=== PATIENT | male | born 1995 | race Caucasian/White ===

== ENCOUNTER 2019-10-31 19:14 | Inpatient (IN) | payer BC, SELFPAY ==
[2019-10-31] VITALS (9 sets, daily range): BP systolic 132–191; BP diastolic 76–104; PULSE 81–132; RESP 17–28; TEMP 36.6–37.3; O2SAT 88–98; BMI 32.5; BMI 31.5; BMI 31.6
[2019-10-31] MEDS: Ipratropium/Albuterol Sulfate 3 ML AMPUL.NEB INHALATION (19:18)
[2019-10-31] MEDS: Albuterol 2.5 MG/3 ML VIAL.NEB. INHALATION ×3 (19:30→20:10)
[2019-10-31] MEDS: MethylPREDNISolone 125 MG/2 ML Vial IV (19:32)
[2019-10-31 19:45] LABS: Absolute Lymphocyte Count 1.74 X10^3/uL (0.83-4.51); Absolute Neutrophil Count 11.2 X10^3/uL (2.0-7.7); Basophil# 0.08 X10^3/uL; Basophil% 0.5 % (0-1); Eosinophil# 1.81 X10^3/uL; Hematocrit 45.9 % (40-54); Hemoglobin 15.3 g/dL (13.0-16.5); Lymphocyte # 1.74 X10^3/ul (4.0); Lymphocyte % 10.6 % (19-41); Mean Corp Hgb Conc 33.3 g/dL (32-36); Mean Corpuscular Hgb 29.4 pg (27.0-32.0); Mean Corpuscular Volume 88.3 fL (80-94); Mean Platelet Vol. 10.1 fl (6.2-12.0); Monocyte# 1.52 X10^3/uL; Monocyte% 9.2 % (0-10); NRBC Flagged by Analyzer 0 % (0-5); Neutrophil # 11.23 X10^3/uL (2.7-7.7); Neutrophil % 68.1 % (47-70); POSITIVE DIFFERENTIAL YES; Platelet Count 235 K/mm3 (150-450); RBC Distribution Width CV 12.4 % (11.6-14.6); White Blood Count 16.5 K/mm3 (4.4-11.0)
[2019-10-31 19:46] LABS: Differential Indicated SCAN CRITERIA MET
[2019-10-31 19:57] LABS: Anion Gap 7 (5-15); BUN 11 mg/dL (7-18); Calcium,Total 8.8 mg/dL (8.5-10.1); Chloride 105 mmol/L (98-107); EST Glomerular Filtration Rate 88 mL/min (>60); Est Glom Filt Rate - Afr Amer 106 mL/min (>60); Estimated Creatinine Clearance 94.25 ml/min; Glucose 117 mg/dL (74-106); Potassium 3.7 mmol/L (3.5-5.1); Sodium Level 139 mmol/L (136-145)
[2019-10-31 20:09] LABS: Differential Comment SCANNED
--- NOTE | 2019-10-31 20:15 | ED.DCSUM_ITS ---
- ER Visit Summary Date of Service: 10/31/19 Chief Complaint: [Shortness of breath] History of Present Illness: The patient is a 24 M [presents to the emergency department complaint of shortness of breath that became more severe about an hour ago. Patient has history of asthma. Patient has been using his inhaler but not get much relief. Patient states that he was diagnosed with asthmatic bronchitis about 3 weeks ago and was treated with Zithromax and prednisone. Patient notes he did get much better with that treatment. He denies any fevers. He does have a cough that is productive at times of some green sputum. Patient denies recent travel or surgery. He denies any exposures to patients with novel coronavirus. He denies any chest pain.] Physical Examination: [HEENT-PERRLA, EOMI. Cranial nerves II through XII grossly intact. TMs clear. Mucous membranes moist. No adenopathy. Cardiovascular-regular rate and rhythm without murmur or ectopy Lungs-diminished bilaterally with expiratory wheezes. Patient is tachypneic. Patient has conversational dyspnea. Abdomen-normoactive bowel sounds, soft, nontender, no rebound or rigidity, no peritoneal signs. Extremities-intact ?4, normal range of motion, normal pulses, atraumatic] Test Results: [CBC with differential obtained showed a white count of 16.5, hemoglobin 15, hematocrit 46, placed 235. Chemistries unremarkable.] Chest x- ray was normal Emergency Department Course and Treatment: [Patient was given DuoNeb aerosol followed by 2 more aerosols. Patient was given Solu-Medrol 125 mg IV. Patient was given 2 g of IV magnesium as he continued to wheeze. Patient was started on Levaquin 750 mg IV. Respiratory panel ordered.] Treatment Plan: [Admit] patient's had symptoms for 3 weeks and started with cough and sputum production. Cannot rule out infection with novel coronavirus based on not having test available from ER. It is concerning that patient continues to feel dyspneic and is hypoxic and he is never required hospitalization for his asthma. Disposition: [Admit] Impression: [Asthmatic bronchitis Hypoxemia] This note was generated with [employer] dictation software. It may contain incorrect words, spelling, and punctuation that were not noted in review of the chart prior to signing ED Disposition - Plan for ED Patient: Referrals: NOT,DEFINED [NON-STAFF] -
--- NOTE | 2019-10-31 20:30 | RAD_ITS ---
STUDY: X-RAY CHEST REASON FOR EXAM: Male, 24 years old. shortness of breath, Hx asthma TECHNIQUE: Single AP portable view of the chest. COMPARISON: None. FINDINGS: compliance monitor leads are present. The lungs are clear and expanded. There is no demonstrated pleural abnormality. Normal size heart. Normal mediastinum and cassidy. Normal visualized pulmonary arteries. Normal visualized aortic arch and descending thoracic aorta. Normal visualized thoracic spine. Normal visualized ribs, clavicles, and shoulders. There is no demonstrated abnormality of the visualized soft tissue structures of the upper abdomen. RAD/Chest 1 View (Portable) IMPRESSION: Normal x-ray examination of the chest. Electronically Signed: Herb Sainz MD at 21:06 EDT , Service support ,
--- NOTE | 2019-10-31 20:51 | CPS ---
x3 Albuterol given to pt. in ED as well
--- NOTE | 2019-10-31 21:21 | HP.PCM_ITS ---
Problem List (1) Asthma exacerbation Status: Acute Qualifiers: Asthma severity: unspecified severity (2) Acute respiratory failure with hypoxia Status: Acute (3) GERD (gastroesophageal reflux disease) Status: Chronic Qualifiers: Esophagitis presence: esophagitis presence not specified Qualified Code(s): K21.9 - Gastro-esophageal reflux disease without esophagitis (4) Obesity (BMI 30.0-34.9) Status: Chronic History of Present Illness Date of Admission: 10/31/19 Chief Complaint: Dyspnea, cough, wheezing The patient is a 24 y/o M w/ PMHx: Asthma, Obesity, GERD who presents to the [facility] ED on 10/31/19 with history of ongoing difficulties with dyspnea, wheezing, intermittently productive cough of green sputum occasionally x 1.5 weeks, noted to have been treated for bronchitis with asthma exacerbation with azithromycin and prednisone therapy; however, he has continued to worsen prompting ED return with a specifically more severe attacks starting approximately 1 hour prior to ED arrival. Patient has been off steroids x 2 weeks. Patient notes subjective fevers and ongoing significant diaphoresis as well as some chest discomfort and back discomfort. He denies any nausea, emesis, diarrhea. He denies any sore throat. He denies headaches. He denies any alteration to sense of smell or taste. He denies any recent ill contacts. He does state that he is never had an exacerbation like this in his entire life. He notes that he seemed to get better for couple days and then would again become short of breath and wheezing despite aerosol usage. Work-up in the ED included T 98.2, heart rate 119, BP 191/104, respiratory rate 20, initially 88% on room air, CBC with WBC 16.5, hemoglobin 15.3, platelet 235 with mild left shift but noted also mild lymphopenia, unremarkable BMP aside glucose 117, chest x-ray with no acute cardiopulmonary findings. In the ED patient administered Solu-Medrol 125 mg IV x1, magnesium sulfate 2 g, DuoNeb and albuterol therapies as well as Levaquin 750 mg IV x1, Bld Cx x 2 pending per ED. Past Medical History Past Medical History (Chronic Problems): Chronic Problems GERD (gastroesophageal reflux disease) (Chronic) Obesity (BMI 30.0-34.9) (Chronic) Allergies No Known Allergies Allergy (Verified 10/31/19 19:18) Home Medications: Ambulatory Orders Medication Instructions Recorded Albuterol Inhaler [Ventolin Hfa 1 puff INHALATION Q4H PRN PRN 10/31/19 (SP)] Surgical History: - - [place] teeth extraction. Psychiatric History: No pertinent psych hx Lives: Spouse/ Significant Other Smoking Status: Never smoker Tobacco Use: Chew Alcohol: Occasional Drugs: None - *Family History Maternal History Items: Hypertension Paternal History Items: Cancer - Father with history of colon cancer, in his 50s. Review of Systems Constitutional: Reports: Anorexia, Chills, Fever, Malaise, Weakness, Fatigue. Denies: Weight Change HEENT: Denies: Head Aches, Nasal Congestion, Post Nasal Drip, Sinus Congestion, Sinus Drainage, Sore Throat Cardiovascular: Reports: Chest Tightness. Denies: Chest Pain, Light Headedness, Palpitations, Syncope Respiratory: Reports: Cough, Shortness of Breath, Shortness of breath at rest, Shortness of breath upon exertion, Sputum production, Wheezing Gastrointestinal: Denies: Abdominal Pain, Nausea, Vomiting Genitourinary: Denies: Dysuria Musculoskeletal: Reports: Back Pain. Denies: Joint Pain, Joint Tenderness Skin: Denies: Rash, Wounds Neurological: Denies: Numbness, Tingling, Focal weakness Psychiatric: Denies: Anxiety, Depression, Homicidal Ideations, Suicidal Ideations Hematologic/ Lymphatic: Denies: Easy Bruising, Easy Bleeding VTE Information - Inpt Only VTE Present on Admission: No VTE Mechan Device Prophylaxis: None VTE Pharm Prophylaxis ordered?: No Reason prophylaxis not ordered:: Treatment Not Indicated Patient Problems: Active and Suspected Problems Asthma exacerbation (Acute) Acute respiratory failure with hypoxia (Acute) Subjective: Seated upright in the ED bed, fatigued appearance, notes some improvement since initial ED presentation but remains extremely diaphoretic. Objective: Physical Examination: General: awake, alert, oriented x 3 and cooperative, seated upright in the ED bed, fatigued appearance, still mildly tachycardic and diaphoretic but notes feeling improved and less dyspneic than initial presentation. Skin: normal color, turgor, no icterus, cyanosis. HEENT: AT/NC, EOMI, PERRLA, moderately dry MM, no carotid bruits or JVD noted. Lungs: Diminished breath sounds, greater upper lung mcgill, expiratory wheezing lower lung mcgill, improved since initial ED presentation, no current accessory muscle usage or increased respiratory rate however upon initial evaluation had been significantly dyspneic with hypoxia and evidence of distress. Heart: Tachycardic with regular rhythm; no gallop, rub audible. Abdomen: soft, obese, NTTP, ND, normal BS, no HSM. Extremities: no cyanosis, clubbing, or edema. Neurological: patient awake, alert, oriented x 3; cognitive function intact; pupils equally reactive to light and accomodation; cranial nerves II-XII grossly normal, moving all 4 extremities, no focal deficits, strength severely global decrease secondary to acute presentation. Psychiatric: affect appears fatigued, ill-appearing, no acute evidence of depressive or anxiety feelings. - Physical Exam Vitals/I&O's: Vital Signs Temp Pulse Resp BP Pulse Ox 98 F 130 H 19 H 145/85 H 97 10/31/19 20:14 10/31/19 20:14 10/31/19 20:14 10/31/19 20:14 10/31/19 20:14 Oxygen Flow Rate (L/min) 2 Oxygen Delivery Method Nasal Cannula Weight: 201 lb 4.513 oz Body Mass Index (BMI) 32.5 Laboratory Results 10/31/19 19:30: WBC 16.5 H, RBC 5.20, Hgb 15.3, Hct 45.9, MCV 88.3, MCH 29.4, MCHC 33.3, RDW Std Deviation 40.0, RDW Coeff of Josie 12.4, Plt Count 235, MPV 10.1, Immature Gran % (Auto) 0.600, Neut % (Auto) 68.1, Lymph % (Auto) 10.6 L, [place] % (Auto) 9.2, Eos % (Auto) 11.0 H, Baso % (Auto) 0.5, Absolute Neuts (auto) 11.2 H, Absolute Lymphs (auto) 1.74, Nucleated RBC % 0, Differential Comment SCANNED, Diff Path Review November foll 10/31/19 19:30: Sodium 139, Potassium 3.7, Chloride 105, Carbon Dioxide 27.0, Anion Gap 7, BUN 11, Creatinine 1.10, Estim Creat Clear Calc 94.25, Est GFR (MDRD) Af Amer 106, Est GFR (MDRD) Non-Af 88, BUN/Creatinine Ratio 10.0, Glucose 117 H, Calcium 8.8 Current Medications Magnesium Sulfate 2 gm/ Sodium (Chloride) 104 mls @ 52 mls/hr IV X1 ONE Stop: 10/31/19 22:59 Last Admin: 10/31/19 20:45 Dose: 52 mls/hr Documented by: Levofloxacin (Levaquin Iv) 750 mg in 150 mls @ 100 mls/hr IV X1 ONE Stop: 10/31/19 22:25 Assessment/Plan All Active Problems Asthma exacerbation (Acute) Acute respiratory failure with hypoxia (Acute) The patient is a 24 y/o M w/ PMHx: Asthma, Obesity, GERD who presents to the [facility] ED on 10/31/19 with history of ongoing difficulties with dyspnea, wheezing, intermittently productive cough of green sputum occasionally x 1.5 weeks, noted to have been treated for bronchitis with asthma exacerbation with azithromycin and prednisone therapy; however, he has continued to worsen prompting ED return with a specifically more severe attacks starting approximately 1 hour prior to ED arrival. 1. Acute on chronic asthma exacerbation w/ Acute Hypoxic Respiratory Failure, Lower Suspicion COVID: Will admit to PCU status on COVID unit to be cautious. Especially given patient has never presented like this prior he notes, maintain on oxygen with wean as tolerated to room air, continue ATC duonebs, PRN albuterol, IV methylprednisolone, HOB, IS parameters, maintain on IV Rocephin and Azithromycin with de-escalation once appropriate with pending sputum cultures, urinary antigens, requesting respiratory viral panel as well as COVID. Will continue supportive care including q 2 hour turning including prone given no prone bed availability and judicious hydration, closely monitor for worsening status for ARDS and multiorgan failure. If patient worsens with need for oxygen >6 L would plan intubation with ICU physician continued care. Bld cx x 2 obtained in the ED. 2. Obesity: Weight loss and lifestyle changes encouraged. 3. GERD: We will maintain on famotidine. 4. DVT prophylaxis: Low risk. Inpatient E&M: 42560 Init Hosp L3
[2019-10-31] MEDS: levoFLOXacin IV 750 MG/150 ML BAG 100 MG IV (21:35)
[2019-10-31 22:39] LABS: AST(SGOT) 24 U/L (15-37); Alanine Aminotransfer ALT/SGPT 40 U/L (16-61); Albumin, Serum 4.4 g/dL (3.2-5.0); Alkaline Phosphatase 87 U/L (45-117); Bilirubin, Direct 0.17 mg/dL (0.00-0.30); Ferritin 332 ng/mL (26-388); Globulin 3.1 g/dL (2.2-4.2); LDH 265 U/L (87-241); Protein, Total 7.5 g/dL (6.4-8.2)
[2019-10-31 22:55] LABS: Procalcitonin < 0.04 ng/mL (0.00-0.09)
[2019-10-31] MEDS: 0.9% Normal Saline 1,000 ML 100 ML IV (23:34)
[2019-11-01] VITALS (15 sets, daily range): BP systolic 122–154; BP diastolic 71–86; PULSE 93–120; RESP 16–22; TEMP 36.9–37.2; O2SAT 92–98
[2019-11-01] MEDS: 0.9% Normal Saline 1,000 ML 999 ML IV (04:43)
[2019-11-01] MEDS: Ipratropium/Albuterol Sulfate 3 ML AMPUL.NEB INHALATION ×3 (06:43→15:19)
[2019-11-01 06:47] LABS: Absolute Lymphocyte Count 0.65 X10^3/uL (0.83-4.51); Absolute Neutrophil Count 8.5 X10^3/uL (2.0-7.7); Basophil# 0.01 X10^3/uL; Basophil% 0.1 % (0-1); Eosinophil# 0.02 X10^3/uL; Eosinophils% 0.2 % (0-5); Hemoglobin 13.9 g/dL (13.0-16.5); Lymphocyte # 0.65 X10^3/ul (4.0); Lymphocyte % 6.9 % (19-41); Mean Corp Hgb Conc 33.9 g/dL (32-36); Mean Corpuscular Hgb 29.8 pg (27.0-32.0); Mean Corpuscular Volume 87.8 fL (80-94); Mean Platelet Vol. 10.3 fl (6.2-12.0); Monocyte% 2.1 % (0-10); NRBC Flagged by Analyzer 0 % (0-5); Neutrophil # 8.53 X10^3/uL (2.7-7.7); Neutrophil % 90.2 % (47-70); Platelet Count 202 K/mm3 (150-450); RBC Distribution Width CV 12.7 % (11.6-14.6); Red Blood Count 4.67 M/mm3 (4.6-6.2); White Blood Count 9.5 K/mm3 (4.4-11.0)
[2019-11-01 07:33] LABS: ALB/GLOB Ratio 1.1 RATIO (0.9-2.4); AST(SGOT) 17 U/L (15-37); Alanine Aminotransfer ALT/SGPT 33 U/L (16-61); Albumin, Serum 3.9 g/dL (3.2-5.0); Alkaline Phosphatase 67 U/L (45-117); Anion Gap 5 (5-15); BUN 10 mg/dL (7-18); BUN/Creat Ratio 11.6 RATIO (10-20); Calcium,Total 8.8 mg/dL (8.5-10.1); Chloride 107 mmol/L (98-107); Creatinine, Serum 0.86 mg/dL (0.70-1.30); EST Glomerular Filtration Rate 116 mL/min (>60); Est Glom Filt Rate - Afr Amer 140 mL/min (>60); Estimated Creatinine Clearance 120.55 ml/min; Globulin 3.4 g/dL (2.2-4.2); Glucose 141 mg/dL (74-106); Potassium 4.6 mmol/L (3.5-5.1); Protein, Total 7.3 g/dL (6.4-8.2); Sodium Level 137 mmol/L (136-145)
[2019-11-01] MEDS: Azithromycin 250 MG Tablet 500 MG PO (09:41)
[2019-11-01 11:13] LABS: Pathologist Review Reviewed
--- NOTE | 2019-11-01 12:54 | PCM.PN.HOSP ---
Patient Problems: Active and Suspected Problems Asthma exacerbation (Acute) Acute respiratory failure with hypoxia (Acute) Subjective: Patient seen and examined. He was admitted with complaint of shortness of breath and wheezing, and was managed for acute asthma exacerbation and rule out COVID 19. Patient says shortness of breath is better. He is not wheezing though he remains on 2 L of oxygen. He denies fever, chills, nausea vomiting, abdominal pain or diarrhea. Review of systems otherwise negative. Patient has been tachycardic though tachypnea is improving. Leukocytosis resolved with white cell count trended down to 9.5 from 16.5. Vitals/I&O's: Vital Signs Temp Pulse Resp BP Pulse Ox 98.5 F 108 H 16 141/82 H 97 11/01/19 09:50 11/01/19 10:58 11/01/19 10:58 11/01/19 09:50 11/01/19 11:01 Oxygen Flow Rate (L/min) 2 Oxygen Delivery Method Room Air Weight: 195 lb 8 oz Body Mass Index (BMI) 31.5 Intake and Output for Last 24 Hours 10/30/19 10/31/19 11/01/19 23:59 23:59 23:59 Intake Total 374 / 374 1805 / 1805 Balance 374 / 374 1805 / 1805 General: Alert, Oriented x3, Cooperative, No apparent distress HEENT: Atraumatic, PERRLA, EOMI, Normocephalic Oral: Moist Mucosa Neck: Supple Lungs: - - diminished breath sounds bibasally, no wheezes or crackles. on 2l of oxygen. Mild expiratory wheezing and rhonchi. Cardiovascular: Normal S1, Normal S2, No murmurs, Tachycardic Abdomen: Bowel Sounds Present, Soft, Non Tender, Non-Distended, No Hepato-splenomegaly Extremities: No clubbing, No cyanosis, No edema, Capillary Refill Less than 3 Seconds Skin: No rashes, No breakdown Musculoskeletal: No Tenderness to Palpation of Joints or Extremities Lymphatic: No Cervical, Supraclavicular, or Inguinal Adenopathy Neurological: Cranial nerves II-XII grossly intact, Neuro grossly intact, Motor Exam 5/5 strength throughout Psych/Mental Status: Normal Affect, Appropriate, Alert and oriented to time, place, person, mood and affect Microbiology Past 72 Hours 11/01/19 04:50 Sputum, Expectorated/Coughed Gram Stain - Final 10/31/19 23:40 Urine, Clean Catch Streptococcus pneumoniae Antigen (M - Final 10/31/19 23:40 Urine, Clean Catch Legionella Antigen - Final 10/31/19 21:52 Mucosa - Nasopharyngeal Respiratory Panel (PCR) - Final Laboratory Results 10/31/19 19:30: WBC 16.5 H, RBC 5.20, Hgb 15.3, Hct 45.9, MCV 88.3, MCH 29.4, MCHC 33.3, RDW Std Deviation 40.0, RDW Coeff of Josie 12.4, Plt Count 235, MPV 10.1, Immature Gran % (Auto) 0.600, Neut % (Auto) 68.1, Lymph % (Auto) 10.6 L, [place] % (Auto) 9.2, Eos % (Auto) 11.0 H, Baso % (Auto) 0.5, Absolute Neuts (auto) 11.2 H, Absolute Lymphs (auto) 1.74, Nucleated RBC % 0, Differential Comment SCANNED, Diff Path Review Reviewed 10/31/19 19:30: Sodium 139, Potassium 3.7, Chloride 105, Carbon Dioxide 27.0, Anion Gap 7, BUN 11, Creatinine 1.10, Estim Creat Clear Calc 94.25, Est GFR (MDRD) Af Amer 106, Est GFR (MDRD) Non-Af 88, BUN/Creatinine Ratio 10.0, Glucose 117 H, Calcium 8.8 10/31/19 19:30: Ferritin 332, Total Bilirubin 0.50, Direct Bilirubin 0.17, AST 24, ALT 40, Alkaline Phosphatase 87, Lactate Dehydrogenase 265 H, C-React Prot Ext Range 48.20 H, Total Protein 7.5, Albumin 4.4, Globulin 3.1 10/31/19 19:30: Procalcitonin < 0.04 10/31/19 22:45: COVID-19 (HENRY) Pending 11/01/19 06:10: WBC 9.5, RBC 4.67, Hgb 13.9, Hct 41.0, MCV 87.8, MCH 29.8, MCHC 33.9, RDW Std Deviation 41.0, RDW Coeff of Josie 12.7, Plt Count 202, MPV 10.3, Immature Gran % (Auto) 0.500, Neut % (Auto) 90.2 H, Lymph % (Auto) 6.9 L, [place] % (Auto) 2.1, Eos % (Auto) 0.2, Baso % (Auto) 0.1, Absolute Neuts (auto) 8.5 H, Absolute Lymphs (auto) 0.65 L, Nucleated RBC % 0 11/01/19 06:10: Sodium 137, Potassium 4.6, Chloride 107, Carbon Dioxide 25.0, Anion Gap 5, BUN 10, Creatinine 0.86, Estim Creat Clear Calc 120.55, Est GFR (MDRD) Af Amer 140, Est GFR (MDRD) Non-Af 116, BUN/Creatinine Ratio 11.6, Glucose 141 H, Calcium 8.8, Total Bilirubin 0.50, AST 17, ALT 33, Alkaline Phosphatase 67, Total Protein 7.3, Albumin 3.9, Globulin 3.4, Albumin/Globulin Ratio 1.1 Diagnostic Data Chest X-Ray 10/31/19 20:30 IMPRESSION: Normal x-ray examination of the chest. Electronically Signed: Herb Sainz MD at 21:06 EDT , Service support , Current Medications Acetaminophen (Tylenol) 650 mg PO Q6H PRN PRN PRN Reason: Pain Score 1-10/Temp > 100.7 F Al Hydroxide/Mg Hydroxide (Mylanta Ii) 30 ml PO Q6H PRN PRN PRN Reason: Gastric Burning Albuterol Sulfate (Ventolin Aerosols) 2.5 mg INHALATION Q2H PRN PRN PRN Reason: Dyspnea, wheezing Albuterol/Ipratropium (Duoneb) 3 ml INHALATION Q4HWA.RT SRAVANI Last Admin: 11/01/19 10:58 Dose: 3 ml Documented by: Azithromycin (Zithromax) 500 mg PO Q24 SRAVANI Last Admin: 11/01/19 09:41 Dose: 500 mg Documented by: Dextrose (D50w Syringe) 0 gm IV X1 PRN; Protocol PRN Reason: Hypoglycemia Glucagon () 1 mg IM .X1 PRN PRN Reason: Hypoglycemia Guaifenesin (Robitussin) 20 ml PO Q4H PRN PRN PRN Reason: COUGH Hydralazine HCl (Apresoline Iv) 10 mg IV Q4H PRN PRN PRN Reason: SBP > 160 Sodium Chloride () 1,000 mls @ 100 mls/hr IV .Q10H [facility] Last Infusion: 11/01/19 05:44 Dose: 100 mls/hr Documented by: Ceftriaxone Sodium 2 gm/ (Sodium Chloride) 50 mls @ 100 mls/hr IV Q24 [facility] Last Infusion: 11/01/19 10:21 Dose: Infused Documented by: Sodium Chloride () 250 mls @ 15 mls/hr IV .[id number] PRN PRN Reason: Saline Flush Sodium Chloride () 250 mls @ 15 mls/hr IV .[id number] PRN PRN Reason: Additional IVPB Infusion Magnesium Hydroxide (Milk Of Magnesia) 30 ml PO DAILY PRN PRN PRN Reason: Constipation Melatonin (Melatonin) 3 mg PO QHS PRN PRN PRN Reason: INSOMNIA Methylprednisolone (Solu-Medrol) 40 mg IV Q8 [facility] Last Admin: 11/01/19 06:10 Dose: 40 mg Documented by: Morphine Sulfate () 2 mg IV Q3H PRN PRN PRN Reason: Pain Score 6-10/10 Ondansetron HCl (Zofran) 4 mg IV Q8H PRN PRN PRN Reason: NAUSEA/VOMITING Oxycodone HCl (Oxyir) 5 mg PO Q4H PRN PRN PRN Reason: Pain Score 4-5/10 Prochlorperazine Edisylate (Compazine Iv) 5 mg IV Q4H PRN PRN PRN Reason: Breakthrough Nausea/Vomiting Psyllium Hydrophilic Mucilloid (Metamucil) 1 packet PO DAILY PRN PRN PRN Reason: Constipation Senna/Docusate Sodium (Senokot-S, Yue-Colace) 2 tablet PO BID PRN PRN PRN Reason: Constipation Sodium Chloride () 10 - 40 ml IV UD PRN PRN Reason: SALINE FLUSH Throat Lozenges (Cepacol Sore Throat Lozenge) 1 lozenge MUCOUS MEM Q2H PRN PRN PRN Reason: SORE THROAT STROKE Vital Signs/Narrative: Vital Signs Temp Pulse Resp BP Pulse Ox 11/01/19 11:01 97 11/01/19 10:58 108 H 16 11/01/19 09:50 98.5 F 106 H 20 H 141/82 H 92 Medical Necessity - Tobacco Use Smoking Status: Never smoker Tobacco Use: Chew Assessment/Plan All Active Problems Asthma exacerbation (Acute) Acute respiratory failure with hypoxia (Acute) 1. Acute on chronic asthma exacerbation on 2L of oxygen; has mild expiratory wheezing on breathing treatment with duonebs on IV solumedrol COVID screen is pending on IV ceftriaxone and azithromycin Urine for strep and Legionella are negative and respiratory panel also negative. Sputum Gram stain showed 2+ gram-positive cocci and rare gram-positive rods. Respiratory culture pending. 2. Sinus tachycardia: HR was in the 120s on admission. now down to 108. dc albuterol check TSH 3. GERD: on famotidine DVT prophylaxis: low risk. encourage ambulation. Inpatient E&M: 21737 Subs Hosp L2
--- NOTE | 2019-11-01 13:19 | CASEMGMT ---
RN CM Assessment Note Presentation: Asthma exacerbation; R/O COVID-19 Intro role of CM and purpose of RN CM assessment to patient via phone. Pt is in isolation. Demographics, PCP and Pharmacy verified. Pt states he is independent, no care needs. Drives and plans to return home on dc. COVID-19 dc concerns: Pt states he lives with who would be able to assist him on dc, including meals. States he has area of home he can isolate in and he currently does not use DME. Pt is not on oxygen currently, anticipate will be able to return home without oxygen. medications: pt states he has pharmacy coverage and is able to get medications for him. PCP: Pt states he sees Neda Chao NP in [place], [place] with [facility]. (Registration called, Ashwini states will enter into chart) Specialists: none Preferred Pharmacy: [facility] [place], [place] Insurance: [place] Prescription Benefit: LNOK : , Alexandra Del Cid Living Arrangements: Lives independently with . Denies care needs Transportation: Drives, but is also able to drive DME: states none. HHC: none Patient DC goals: Home DC PLAN: Anticipate home on discharge. RN CM advised to contact cm for any concerns/needs that may arise. Santiago IRIZARRY RN ACM
[2019-11-01 14:01] LABS: Thyroid Stim Hormone (TSH) 0.47 uIU/mL (0.358-3.74)
[2019-11-01] MEDS: 0.9% Normal Saline 1,000 ML 100 ML IV ×2 (14:21→22:47)
[2019-11-01] MEDS: Mag Hydrox/Al Hydrox/Simeth 30 ML UDC PO (22:41)
[2019-11-01] MEDS: BENZOCAINE/MENTHOL 1 LOZENGE MUCOUS MEM (22:44)
[2019-11-01] MEDS: 0.9% Saline Lock 10 ML Syringe IV (22:45)
[2019-11-02 03:05] VITALS: PULSE 92
[2019-11-02 04:41] VITALS: BP 133/74; PULSE 105; RESP 18; TEMP 36.7; O2SAT 95
[2019-11-02] MEDS: 0.9% Saline Lock 10 ML Syringe IV (04:42)
[2019-11-02 06:24] LABS: Absolute Lymphocyte Count 1.01 X10^3/uL (0.83-4.51); Absolute Neutrophil Count 19.7 X10^3/uL (2.0-7.7); Basophil# 0.02 X10^3/uL; Basophil% 0.1 % (0-1); Hemoglobin 14.2 g/dL (13.0-16.5); Lymphocyte # 1.01 X10^3/ul (4.0); Lymphocyte % 4.6 % (19-41); Mean Corpuscular Hgb 29.5 pg (27.0-32.0); Mean Corpuscular Volume 89.2 fL (80-94); Mean Platelet Vol. 10.2 fl (6.2-12.0); Monocyte# 1.03 X10^3/uL; Monocyte% 4.7 % (0-10); NRBC Flagged by Analyzer 0 % (0-5); Neutrophil # 19.68 X10^3/uL (2.7-7.7); Neutrophil % 89.7 % (47-70); Platelet Count 212 K/mm3 (150-450); RBC Distribution Width CV 12.9 % (11.6-14.6); RBC Distribution Width SD 42.5 fl (35.1-43.9); Red Blood Count 4.82 M/mm3 (4.6-6.2); White Blood Count 21.9 K/mm3 (4.4-11.0)
[2019-11-02 06:52] LABS: Anion Gap 6 (5-15); BUN 12 mg/dL (7-18); BUN/Creat Ratio 15.4 RATIO (10-20); Calcium,Total 8.9 mg/dL (8.5-10.1); Chloride 108 mmol/L (98-107); Creatinine, Serum 0.78 mg/dL (0.70-1.30); EST Glomerular Filtration Rate 131 mL/min (>60); Est Glom Filt Rate - Afr Amer 158 mL/min (>60); Estimated Creatinine Clearance 132.92 ml/min; Glucose 130 mg/dL (74-106); Potassium 4.5 mmol/L (3.5-5.1); Sodium Level 139 mmol/L (136-145)
[2019-11-02 07:11] VITALS: PULSE 78
[2019-11-02 07:35] VITALS: BP 140/68; PULSE 93; RESP 20; TEMP 36.7; O2SAT 94
[2019-11-02] MEDS: Azithromycin 250 MG Tablet 500 MG PO (07:37)
[2019-11-02] MEDS: 0.9% Normal Saline 1,000 ML 100 ML IV (07:37)
--- NOTE | 2019-11-02 09:02 | DCINST_ITS ---
- Discharge Diagnoses Current Active Problems: Current Active and Chronic Problems Asthma exacerbation (Acute) Acute respiratory failure with hypoxia (Acute) GERD (gastroesophageal reflux disease) (Chronic) Obesity (BMI 30.0-34.9) (Chronic) You will use the following diet at home:: No restrictions Your food should be the consistency of: Regular Your liquids should be the consistency of: Regular/Thin Discharge Activity: Return to Normal Activity Weight Bearing Status: Weight bearing as tolerated Instructions: Understanding Asthma, Understanding Asthma Triggers, Caring for Your Inhaler, Controlling Asthma Triggers: Irritants, Exercising with Asthma Additional Instructions: stay in self isolation for the next 14 days, unless COVID screen comes back negative. Allergies/Adverse Reactions: Allergies No Known Allergies Allergy (Verified 10/31/19 19:18) Medications to take at Discharge Albuterol Inhaler [Ventolin Hfa] 1 puff INHALATION Q4H PRN PRN 10/31/19 Budesonide/Formoterol Fumarate [Budesonide-Formoterol 160-4.5] 10.2 gm IH BID #1 hfa.aer.ad 11/02/19 MethylPREDNISolone DosePak [Medrol DosePak] 4 mg PO UD #1 box 11/02/19 The following prescriptions were given: Budesonide/Formoterol Fumarate [Budesonide-Formoterol 160-4.5] 10.2 gm IH BID #1 hfa.aer.ad Transmission Status: Pending to [facility] MethylPREDNISolone DosePak [Medrol DosePak] 4 mg PO UD #1 box Transmission Status: Pending to [facility] Primary Care Physician: NOT,DEFINED [NON-STAFF] - Test Results: Test results from this visit will be discussed in further detail at your follow- up appointment, if applicable. Please Follow Up With: Mary Escalante MD When: call office to set up PCP appointment Please Follow Up With: Antolin Sloan MD When: call office to set up pulmonology appointment Proposed Discharge Date: 11/02/19
--- NOTE | 2019-11-02 09:08 | DS.PCM_ITS ---
Discharge Date and Diagnosis Date of Admission: 10/31/19 Date of Discharge: 11/02/19 - Primary Discharge Diagnosis Active and Suspected Problems Asthma exacerbation (Acute) suspected COVID 19 infection- test pending - Secondary Discharge Diagnosis Chronic Problems GERD (gastroesophageal reflux disease) (Chronic) Obesity (BMI 30.0-34.9) (Chronic) Hospital Course and Treatment Imaging Results: Diagnostic Data Chest X-Ray 10/31/19 20:30 IMPRESSION: Normal x-ray examination of the chest. Electronically Signed: Herb Sainz MD at 21:06 EDT , Service support , Operations: None Procedures: None Summary of Care Provided: The patient is a 24 year old M with a PMH of asthma, obesity and GERD who [facility] with a complaint of shortness of breath, dyspnea and wheezing with intermittently productive cough. he had been treated for asthma exacerbation and bronchitis with azithromycin and prednisone ~ 1 week prior to admission. Symptoms however persisted and he also has subjective fevers and some chest discomfort and back discomfort. He had no nausea, emesis or diarrhea or any sore throat. He had not been in contact with anybody with COVID-19. Patient states he has been asthmatic since childhood but has not had an exacerbation until recently where he had had a 2 exacerbations a few weeks apart. On admission, he was saturating at 88% on room air and respiratory rate was 20. White cell count was 16.5 but he had been on steroids. Chest x-ray showed no acute cardiopulmonary findings. He was admitted and managed for acute asthmatic exacerbation and started on IV Solu-Medrol and breathing treatments. COVID screen was done and was still pending at time of discharge. Urine for strep and Legionella were negative and respiratory panel was also negative. Sputum Gram stain was negative. Patient shortness of breath improved. Patient had been tachycardic also admission and this resolved with discontinuation of albuterol inhaler. Patient stated that he had been scheduled to follow-up with pulmonology on outpatient basis but his appointment had been canceled in light of the ongoing coronavirus pandemic. Patient had been started on IV ceftriaxone and azithromycin on admission due to possible respiratory infection. Shortness of breath and wheezing resolved. Tachycardia resolved. He remained stable, and was discharged home on 11/02/2019, with a script for medrol dose pack, and Symbicort inhaler 2 puffs bid. He is to continue using his albuterol inhaler as rescue inhaler. He is to follow-up with his primary care doctor within 1 week and is also to follow-up with pulmonology. Patient does not have a listed primary care doctor so was referred to maintain internal medicine in [place]. Patient seen and examined prior to discharge. He had no complaints. Review of symptoms otherwise negative. Labs and vitals reviewed. Home medication reviewed and reconciled. o/e: Vital Signs Temp Pulse Resp BP Pulse Ox 98.1 F 93 20 H 140/68 H 94 11/02/19 07:35 11/02/19 07:35 11/02/19 07:35 11/02/19 07:35 11/02/19 07:35 [] General: Alert, Oriented x3, Cooperative, No apparent distress HEENT: Atraumatic, PERRLA, EOMI, Normocephalic Oral: Moist Mucosa Neck: Supple, No JVD, Negative Carotid Bruits Lungs: - - mildly decreased breath sounds bibasally, no wheezes or crackles. Cardiovascular: Regular rate, Regular Rhythm, Normal S1, Normal S2, No murmurs Abdomen: Bowel Sounds Present, Soft, Non Tender Extremities: No edema, Capillary Refill Less than 3 Seconds Skin: No rashes, No breakdown Musculoskeletal: No Tenderness to Palpation of Joints or Extremities Lymphatic: No Cervical, Supraclavicular, or Inguinal Adenopathy Neurological: Cranial nerves II-XII grossly intact, Neuro grossly intact, Motor Exam 5/5 strength throughout Psych/Mental Status: Normal Affect, Appropriate, Alert and oriented to time, place, person, mood and affect Plan as above. Patient was also counseled that he would need to self isolate f or 14 days due to his pending COVID screen. He would be informed about his could be screened by the hospital and if turned out to be negative, he could discontinue self-isolation. - Physical Exam Vitals/I&O's: Vital Signs Temp Pulse Resp BP Pulse Ox 98.1 F 93 20 H 140/68 H 94 11/02/19 07:35 11/02/19 07:35 11/02/19 07:35 11/02/19 07:35 11/02/19 07:35 Oxygen Flow Rate (L/min) 2 Oxygen Delivery Method Room Air Weight: 195 lb 8 oz Body Mass Index (BMI) 31.5 Intake and Output for Last 24 Hours 10/31/19 11/01/19 11/02/19 23:59 23:59 23:59 Intake Total 374 / 374 5323.33 / 5323.33 1553.33 / 1553.33 Balance 374 / 374 5323.33 / 5323.33 1553.33 / 1553.33 Microbiology Past 72 Hours 11/01/19 04:50 Sputum, Expectorated/Coughed Gram Stain - Final 10/31/19 23:40 Urine, Clean Catch Streptococcus pneumoniae Antigen (M - Final 10/31/19 23:40 Urine, Clean Catch Legionella Antigen - Final 10/31/19 21:52 Mucosa - Nasopharyngeal Respiratory Panel (PCR) - Final Laboratory Results 10/31/19 19:30: Diff Path Review Reviewed 10/31/19 22:45: COVID-19 ([facility]) Pending 11/01/19 06:10: TSH 0.47 11/02/19 06:08: WBC 21.9 H, RBC 4.82, Hgb 14.2, Hct 43.0, MCV 89.2, MCH 29.5, MCHC 33.0, RDW Std Deviation 42.5, RDW Coeff of Josie 12.9, Plt Count 212, MPV 10.2, Immature Gran % (Auto) 0.900, Neut % (Auto) 89.7 H, Lymph % (Auto) 4.6 L, [place] % (Auto) 4.7, Eos % (Auto) 0.0, Baso % (Auto) 0.1, Absolute Neuts (auto) 19.7 H, Absolute Lymphs (auto) 1.01, Nucleated RBC % 0 11/02/19 06:08: Sodium 139, Potassium 4.5, Chloride 108 H, Carbon Dioxide 25.0, Anion Gap 6, BUN 12, Creatinine 0.78, Estim Creat Clear Calc 132.92, Est GFR (MDRD) Af Amer 158, Est GFR (MDRD) Non-Af 131, BUN/Creatinine Ratio 15.4, Glucose 130 H, Calcium 8.9 Current Medications Acetaminophen (Tylenol) 650 mg PO Q6H PRN PRN PRN Reason: Pain Score 1-10/Temp > 100.7 F Al Hydroxide/Mg Hydroxide (Mylanta Ii) 30 ml PO Q6H PRN PRN PRN Reason: Gastric Burning Last Admin: 11/01/19 22:41 Dose: 30 ml Documented by: Albuterol/Ipratropium (Duoneb) 3 ml INHALATION Q4HWA.RT PRN PRN Reason: SOB &/OR WHEEZING Azithromycin (Zithromax) 500 mg PO Q24 [facility] Last Admin: 11/02/19 07:37 Dose: 500 mg Documented by: Dextrose (D50w Syringe) 0 gm IV X1 PRN; Protocol PRN Reason: Hypoglycemia Glucagon () 1 mg IM .X1 PRN PRN Reason: Hypoglycemia Guaifenesin (Robitussin) 20 ml PO Q4H PRN PRN PRN Reason: COUGH Hydralazine HCl (Apresoline Iv) 10 mg IV Q4H PRN PRN PRN Reason: SBP > 160 Sodium Chloride () 1,000 mls @ 100 mls/hr IV .Q10H [facility] Last Infusion: 11/02/19 08:49 Dose: Infused Documented by: Ceftriaxone Sodium 2 gm/ (Sodium Chloride) 50 mls @ 100 mls/hr IV Q24 [facility] Last Infusion: 11/02/19 08:36 Dose: Infused Documented by: Sodium Chloride () 250 mls @ 15 mls/hr IV .[id number] PRN PRN Reason: Saline Flush Sodium Chloride () 250 mls @ 15 mls/hr IV .[id number] PRN PRN Reason: Additional IVPB Infusion Magnesium Hydroxide (Milk Of Magnesia) 30 ml PO DAILY PRN PRN PRN Reason: Constipation Melatonin (Melatonin) 3 mg PO QHS PRN PRN PRN Reason: INSOMNIA Methylprednisolone (Solu-Medrol) 40 mg IV Q8 [facility] Last Admin: 11/02/19 04:42 Dose: 40 mg Documented by: Morphine Sulfate () 2 mg IV Q3H PRN PRN PRN Reason: Pain Score 6-10/10 Ondansetron HCl (Zofran) 4 mg IV Q8H PRN PRN PRN Reason: NAUSEA/VOMITING Oxycodone HCl (Oxyir) 5 mg PO Q4H PRN PRN PRN Reason: Pain Score 4-5/10 Prochlorperazine Edisylate (Compazine Iv) 5 mg IV Q4H PRN PRN PRN Reason: Breakthrough Nausea/Vomiting Psyllium Hydrophilic Mucilloid (Metamucil) 1 packet PO DAILY PRN PRN PRN Reason: Constipation Senna/Docusate Sodium (Senokot-S, Yue-Colace) 2 tablet PO BID PRN PRN PRN Reason: Constipation Sodium Chloride () 10 - 40 ml IV UD PRN PRN Reason: SALINE FLUSH Last Admin: 11/02/19 04:42 Dose: 10 ml Documented by: Throat Lozenges (Cepacol Sore Throat Lozenge) 1 lozenge MUCOUS MEM Q2H PRN PRN PRN Reason: SORE THROAT Last Admin: 11/01/19 22:44 Dose: 1 lozenge Documented by: Discharge Diet: Low fat/ Low Cholesterol Discharge Activity: Return to Normal Activity Weight Bearing Status: Weight bearing as tolerated Home Medications: Medications to take at Discharge Albuterol Inhaler [Ventolin Hfa] 1 puff INHALATION Q4H PRN PRN 10/31/19 Budesonide/Formoterol Fumarate [Budesonide-Formoterol 160-4.5] 10.2 gm IH BID #1 hfa.aer.ad 11/02/19 MethylPREDNISolone DosePak [Medrol DosePak] 4 mg PO UD #1 box 11/02/19 Following Prescrptions Were Given to Patient: Budesonide/Formoterol Fumarate [Budesonide-Formoterol 160-4.5] 10.2 gm IH BID #1 hfa.aer.ad Transmission Status: Received by [employer] [id number] MethylPREDNISolone DosePak [Medrol DosePak] 4 mg PO UD #1 box Transmission Status: Received by [employer] [id number] Primary Care Physician: NOT,DEFINED [NON-STAFF] - Please Follow Up With: Mary Escalante MD When: call office to set up PCP appointment Please Follow Up With: Antolin Sloan MD When: call office to set up pulmonology appointment Patient Instructions: Understanding Asthma, Understanding Asthma Triggers, Caring for Your Inhaler, Controlling Asthma Triggers: Irritants, Exercising with Asthma Disposition: Home Minutes spent on discharge:: 40 Patient Condition:: Stable Medical Necessity - Tobacco Use Smoking Status: Never smoker Tobacco Use: Chew Meaningful Use Info Meaningful Use Diagnoses (Choose all that apply): None applicable Inpatient E&M: 58025 Disch Hosp
== END 2019-11-02 09:50 | disposition home or self-care (01) | DRG 203 ==
LOC: ED 21:14 → MS2 22:04
PROVIDERS: Admitting Provider Family Medicine; Emergency Provider Emergency Medicine; Visit Provider Student in an Organized Health Care Education/Training Program
DX: J45.901 Unspecified asthma with (acute) exacerbation (principal); K21.9 Gastro-esophageal reflux disease without esophagitis; E66.9 Obesity, unspecified; Z68.32 Body mass index [BMI] 32.0-32.9, adult; Z72.0 Tobacco use
CPT/HCPCS: 36415; 71045; 80048; 80053; 80076; 82728; 83615; 84145; 84443; 85025; 86140; 87040; 87070; 87205; 87449; 87633; 87635; 94640; 94667; 94668; 96374; 99251; 99285; 99406; J7030; J7050; A4216; G0463; J0696; J3475; U0004